=== PATIENT | female | born 1990 | race Caucasian/White ===

== ENCOUNTER 2019-09-01 11:47 | Emergency (ER) | payer MEDICAID ==
--- NOTE | 2019-09-01 12:39 | EDM.PDOC ---
ED HPI GENERAL MEDICAL PROBLEM - General Chief Complaint: Abdominal Pain Stated Complaint: PRESSURE AND PAIN IN LOWER AREA ABDOMEN Time Seen by Provider: 09/01/19 12:25 Source of Information: Reports: Patient History Limitations: Reports: No Limitations - History of Present Illness INITIAL COMMENTS - FREE TEXT/NARRATIVE: 29-year-old female arrives to the emergency room with worsening lower abdominal pain, especially the right lower quadrant for the past week. She has a history of ectopic pregnancies and is concerned she may be developing another problem. No significant nausea or vomiting, no dysuria, she has had some chills. She is having more pain with movement and walking. Onset: Gradual Duration: Day(s): (7 days) Associated Symptoms: Reports: Fever/Chills, Malaise. Denies: Confusion, Chest Pain, Nausea/Vomiting, Shortness of Breath Right Lower Abdomen Pain Score (Numeric/FACES): 7 - Related Data Allergies Allergy/AdvReac Type Severity Reaction Status Date / Time aspirin Allergy Hives Verified 09/01/19 12:08 fentanyl Allergy Vomiting Verified 09/01/19 12:08 hazelnut Allergy Airway Verified 09/01/19 12:08 Tightness meperidine HCl [From Demerol] Allergy Vomiting Verified 09/01/19 12:08 pineapple Allergy Airway Verified 09/01/19 12:08 Tightness Home Meds: Home Meds NK [No Known Home Meds] 09/01/19 [History] Past Medical History HEENT History: Reports: Impaired Vision Respiratory History: Reports: Asthma 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 psych hospitals as teenager. Ended parole 05/28, ended treatment for drugs May Hematologic History: Reports: Other (See Below) Other Hematologic History: hep c Oncologic (Cancer) History: Reports: Breast Other Oncologic History: tongue Dermatologic History: Reports: Melanoma, Other (See Below) Other Dermatologic History: surgery on r axcilla for cyst. - Infectious Disease History Infectious Disease History: Reports: Chicken Pox - Past Surgical History Other Female Surgeries/Procedures: salipingooopherectomy Musculoskeletal Surgical History: Reports: Ganglion Cyst Social & Family History - Tobacco Use Smoking Status *Q: Current Every Day Smoker Years of Tobacco use: 12 Packs/Tins Daily: 0.5 Used Tobacco, but Quit: No Second Hand Smoke Exposure: Yes - Caffeine Use Caffeine Use: Reports: Coffee, Energy Drinks, Soda - Recreational Drug Use Recreational Drug Use: No ED ROS GENERAL - Review of Systems Review Of Systems: See Below Constitutional: Reports: Fever, Chills, Malaise HEENT: Reports: No Symptoms Respiratory: Denies: Shortness of Breath Cardiovascular: Denies: Chest Pain GI/Abdominal: Reports: Abdominal Pain. Denies: Diarrhea, Nausea, Vomiting Skin: Reports: No Symptoms Neurological: Denies: Headache ED EXAM, GI/ABD - Physical Exam Exam: See Below Exam Limited By: No Limitations General Appearance: Alert, No Apparent Distress, Other (Appears uncomfortable but not distressed) Eyes: Bilateral: Normal Appearance (Good hydration, no jaundice) Head: Atraumatic Respiratory/Chest: No Respiratory Distress, Lungs Clear Cardiovascular: Regular Rate, Rhythm GI/Abdominal Exam: Soft, Rebound, Tender (Very tender in the right lower quadrant with guarding and rebound present) Neurological: Alert, Oriented Skin Exam: Warm, Dry Course - Vital Signs Last Recorded V/S: Last Vital Signs Temp 99.0 F 09/01/19 15:47 Pulse 83 09/01/19 15:47 Resp 16 09/01/19 15:47 BP 103/69 09/01/19 15:47 Pulse Ox 98 09/01/19 15:47 - Orders/Labs/Meds Orders: Active Orders 24 hr Category Date Time Status Pelvis Non OB Ltd [US] Stat Exams 09/01/19 14:56 Taken Labs: Laboratory Tests 09/01/19 09/01/19 09/01/19 Range/Units 12:26 12:26 12:26 WBC (4.5-11.0) K/uL RBC (3.30-5.50) M/uL Hgb (12.0-15.0) g/dL Hct (36.0-48.0) % MCV (80-98) fL MCH (27-31) pg MCHC (32-36) % Plt Count (150-400) K/uL Neut % (Auto) (36-66) % Lymph % (Auto) (24-44) % [place] % (Auto) (2-6) % Eos % (Auto) (2-4) % Baso % (Auto) (0-1) % Sodium (140-148) mmol/L Potassium (3.6-5.2) mmol/L Chloride (100-108) mmol/L Carbon Dioxide (21-32) mmol/L Anion Gap (5.0-14.0) mmol/L BUN (7-18) mg/dL Creatinine (0.6-1.0) mg/dL Est Cr Clr Drug Dosing mL/min Estimated GFR (MDRD) (>60) Glucose (74-106) mg/dL Calcium (8.5-10.1) mg/dL Total Bilirubin (0.2-1.0) mg/dL AST (15-37) U/L ALT (12-78) U/L Alkaline Phosphatase (46-116) U/L Total Protein (6.4-8.2) g/dL Albumin (3.4-5.0) g/dL Globulin (2.3-3.5) g/dL Albumin/Globulin Ratio (1.2-2.2) Urine Color Yellow (YELLOW) Urine Appearance Slightly cloudy A (CLEAR) Urine pH 6.0 (5.0-8.0) Ur Specific [place] 1.025 (1.008-1.030) Urine Protein Negative (NEGATIVE) mg/dL Urine Glucose (UA) Negative (NEGATIVE) mg/dL Urine Ketones Negative (NEGATIVE) mg/dL Urine Occult Blood Negative (NEGATIVE) Urine Nitrite Negative (NEGATIVE) Urine Bilirubin Negative (NEGATIVE) Urine Urobilinogen 0.2 (0.2-1.0) EU/dL Ur Leukocyte Esterase Trace H (NEGATIVE) Urine RBC 0-5 (0-5) Urine WBC 0-5 (0-5) Ur Epithelial Cells Moderate Amorphous Sediment Not seen Urine Bacteria Few Urine Mucus Few Urine HCG, Qual Negative Urine Opiates Screen Negative (NEGATIVE) Ur Oxycodone Screen Negative (NEGATIVE) Urine Methadone Screen Negative (NEGATIVE) Ur Propoxyphene Screen Negative (NEGATIVE) Ur Barbiturates Screen Negative (NEGATIVE) Ur Tricyclics Screen Negative (NEGATIVE) Ur Phencyclidine Scrn Negative (NEGATIVE) Ur Amphetamine Screen Negative (NEGATIVE) U Methamphetamines Scrn Negative (NEGATIVE) Urine MDMA Screen Negative (NEGATIVE) U Benzodiazepines Scrn Negative (NEGATIVE) U Cocaine Metab Screen Negative (NEGATIVE) U Marijuana (THC) Screen Presumptive positive H (NEGATIVE) 09/01/19 09/01/19 Range/Units 12:40 12:40 WBC 6.1 (4.5-11.0) K/uL RBC 4.55 (3.30-5.50) M/uL Hgb 14.1 (12.0-15.0) g/dL Hct 43.1 (36.0-48.0) % MCV 95 (80-98) fL MCH 31 (27-31) pg MCHC 33 (32-36) % Plt Count 261 (150-400) K/uL Neut % (Auto) 58 (36-66) % Lymph % (Auto) 33 (24-44) % [place] % (Auto) 7 H (2-6) % Eos % (Auto) 2 (2-4) % Baso % (Auto) 1 (0-1) % Sodium 139 L (140-148) mmol/L Potassium 3.9 (3.6-5.2) mmol/L Chloride 103 (100-108) mmol/L Carbon Dioxide 28 (21-32) mmol/L Anion Gap 11.9 (5.0-14.0) mmol/L BUN 11 (7-18) mg/dL Creatinine 0.6 (0.6-1.0) mg/dL Est Cr Clr Drug Dosing 108.83 mL/min Estimated GFR (MDRD) > 60 (>60) Glucose 81 (74-106) mg/dL Calcium 8.9 (8.5-10.1) mg/dL Total Bilirubin 0.3 (0.2-1.0) mg/dL AST 18 (15-37) U/L ALT 17 (12-78) U/L Alkaline Phosphatase 71 (46-116) U/L Total Protein 7.8 (6.4-8.2) g/dL Albumin 3.6 (3.4-5.0) g/dL Globulin 4.2 H (2.3-3.5) g/dL Albumin/Globulin Ratio 0.9 L (1.2-2.2) Urine Color (YELLOW) Urine Appearance (CLEAR) Urine pH (5.0-8.0) Ur Specific [place] (1.008-1.030) Urine Protein (NEGATIVE) mg/dL Urine Glucose (UA) (NEGATIVE) mg/dL Urine Ketones (NEGATIVE) mg/dL Urine Occult Blood (NEGATIVE) Urine Nitrite (NEGATIVE) Urine Bilirubin (NEGATIVE) Urine Urobilinogen (0.2-1.0) EU/dL Ur Leukocyte Esterase (NEGATIVE) Urine RBC (0-5) Urine WBC (0-5) Ur Epithelial Cells Amorphous Sediment Urine Bacteria Urine Mucus Urine HCG, Qual Urine Opiates Screen (NEGATIVE) Ur Oxycodone Screen (NEGATIVE) Urine Methadone Screen (NEGATIVE) Ur Propoxyphene Screen (NEGATIVE) Ur Barbiturates Screen (NEGATIVE) Ur Tricyclics Screen (NEGATIVE) Ur Phencyclidine Scrn (NEGATIVE) Ur Amphetamine Screen (NEGATIVE) U Methamphetamines Scrn (NEGATIVE) Urine MDMA Screen (NEGATIVE) U Benzodiazepines Scrn (NEGATIVE) U Cocaine Metab Screen (NEGATIVE) U Marijuana (THC) Screen (NEGATIVE) Meds: Medications Discontinued Medications Generic Name Dose Route Start Last Admin Trade Name Freq PRN Reason Stop Dose Admin Ketorolac Tromethamine 60 mg 09/01/19 16:05 09/01/19 16:09 Toradol IM 09/01/19 16:06 60 mg ONETIME ONE Administration - Re-Assessments/Exams Free Text/Narrative Re-Assessment/Exam: 09/01/19 12:39 CBC CMP were obtained as well as a UA. Urine will be tested, if negative a CT of the abdomen obtained, if positive an ultrasound. 09/01/19 13:05 CBC is normal, CMP is normal, UA is negative for infection and patient is not . We will obtain an abdomen and pelvis CT without contrast. 09/01/19 15:27 Impression: 1. There is no obstructive urolith, hydronephrosis, or perinephric edema. 2. Normal caliber appendix. No secondary signs for appendicitis, such as cecal wall thickening. 3. There is pelvic fat stranding, which is nonspecific. No drainable fluid collection. Differential diagnosis includes pelvic inflammatory disease or recently ruptured ovarian cyst. If there is concern clinically, this may be correlated with physical exam findings and pelvic ultrasound. 4. Case reviewed with Dr. Apodaca of the emergency department, 09/01/2019, 1515 hours. Dictated by Ambrocio Bennett MD @ 09/01/2019 3:18:07 PM Pelvic ultrasound ordered 09/01/19 16:05 Patient was given 60 mg of IM Toradol pending ultrasound result. 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 She was given 60 mg of IM Toradol, will be placed on Toradol for 5 days orally and already has a recheck appointment with her primary provider in one week. She can return if worsening such as increased pain, fever, vaginal discharge, other concerns. She declined a vaginal probe for ultrasound or pelvic exam at this time. Departure - Departure Time of Disposition: 16:19 Disposition: Home, Self-Care 01 Clinical Impression: Abdominal pain Qualifiers: Abdominal location: right lower quadrant Qualified Code(s): R10.31 - Right lower quadrant pain - Discharge Information Instructions: Abdominal Pain, Adult, [id number] Referrals: Beata Nur CNM [Primary Care Provider] - Forms: ED Department Discharge Care Plan Goals: Take 1 pain pill every 6-8 hours for the next 5 days. Return anytime if worsening such as fever, increased pain, increased vaginal discharge or other concerns. Otherwise recheck with your primary provider as scheduled. - My Orders Last 24 Hours: My Active Orders 09/01/19 14:56 Pelvis Non OB Ltd [US] Stat - Assessment/Plan Last 24 Hours: My Active Orders 09/01/19 14:56 Pelvis Non OB Ltd [US] Stat
--- NOTE | 2019-09-01 15:18 | CRLCT ---
INDICATION: rlq pain Indication: Right lower quadrant abdominal pain. Technique: CT of the abdomen and pelvis. No intravenous contrast. Coronal/sagittal reconstruction images. Comparison: None. Findings: Lung bases: There is no pleural or pericardial effusion. The heart size is normal. There is no acute airspace disease. There is no basilar pneumothorax. Abdomen/pelvis: Non cirrhotic liver morphology. No perihepatic ascites. No solid hepatic mass. No gallbladder inflammatory changes. Normal caliber common bile duct. The spleen size is normal. There is no adrenal mass. There is no pancreatic mass, pancreatic duct dilation, or glandular atrophy. There is no hydronephrosis. There are no perinephric inflammatory changes. No calculi are seen in either intrarenal collecting system. The extraperitoneal space of [place] is clear. There are pelvic phleboliths. There is fat stranding present in the pelvis, as seen on image 118, series 2. There is no adnexal mass. There is no evidence on CT for a small bowel or colonic obstruction. There is no pneumatosis. There is no portal venous gas. No secondary signs for acute appendicitis are seen. There are multiple lymph nodes in both common femoral chains. The largest is seen in the right common femoral chain, measuring up to 13 millimeters in short axis, image 129, series 2. These are indeterminate. There is no pelvic sidewall lymphadenopathy, and no retroperitoneal or gastrohepatic ligament adenopathy. The appendix is likely visualized on series 2, image 104, and image 37 of series 3. The bone windows demonstrate no lytic or blastic bone lesions. The alignment is preserved. On sagittal reconstruction images, there is a suspected limbus vertebra at L4 and L5. This is seen well on image 53, series 4. Impression: 1. There is no obstructive urolith, hydronephrosis, or perinephric edema. 2. Normal caliber appendix. No secondary signs for appendicitis, such as cecal wall thickening. 3. There is pelvic fat stranding, which is nonspecific. No drainable fluid collection. Differential diagnosis includes pelvic inflammatory disease or recently ruptured ovarian cyst. If there is concern clinically, this may be correlated with physical exam findings and pelvic ultrasound. 4. Case reviewed with Dr. Apodaca of the emergency department, 09/01/2019, 1515 hours. Dictated by Ambrocio Bennett MD @ 09/01/2019 3:18:07 PM Please note that all CT scans at this facility use dose modulation, iterative reconstruction, and/or weight-based dosing when appropriate to reduce radiation dose to as low as reasonably achievable. Dictated by: Ambrocio Bennett MD @ 09/01/2019 15:18:18 (Electronically Signed)
[2019-09-01 15:48] VITALS: BP 103/69; PULSE 83
[2019-09-01] MEDS ORDERED: Ketorolac 60 MG/2 ML SDV IM ONE (16:05)
--- NOTE | 2019-09-01 16:56 | CRLUS ---
CLINICAL HISTORY: Pain right lower quadrant. TECHNIQUE: Real time, cantrell scale images were acquired of the pelvis using a transabdominal approach. Color Doppler analysis was performed of the ovaries. Comparison CT abdomen pelvis dated 09/01/2019 FINDINGS: Transabdominal imaging demonstrates normal appearance of the uterus which measures 6.3 x 3.1 x 4.3 cm. The endometrial stripe measures 4 millimeters. The ovaries appear unremarkable the right ovary measures 2.2 x 2.8 x 2.1 cm. There is left ovary measures 1.8 x 1.4 x 1.9 cm. Blood flow seen within both ovaries. No adnexal mass. No free fluid is seen. IMPRESSION: Limited transabdominal pelvic ultrasound which is unremarkable demonstrating normal appearance to the uterus and both ovaries. Normal blood flow to both ovaries. Dictated by Marjan Abernathy MD @ Sep 01 2019 4:37PM Signed by Dr. Marjan Abernathy @ Sep 01 2019 4:55PM
== END 2019-09-01 16:20 | disposition home or self-care (01) ==
LOC: JP.ED 11:47
DX: R10.31 Right lower quadrant pain (principal); F17.210 Nicotine dependence, cigarettes, uncomplicated; Z88.8 Allergy status to other drugs, medicaments and biological substances; Z88.6 Allergy status to analgesic agent; Z91.018 Allergy to other foods
CPT/HCPCS: 36415; 74176; 76857; 80053; 80305; 81001; 81025; 85025; 96372; 99284; J1885